=== PATIENT | male | born 1940 ===

== ENCOUNTER 2019-11-05 11:32 | Outpatient (CLI) | payer OTHER ==
[~2019-11-05 11:32] MED LIST: ASA81 MG PO; CEFADROXIL500 MG PO; HYDROCHLOROTHIAZIDE; LISINOPRIL; NOVOLIN N100 UNITS/ IJ; NOVOLIN R100 U/ML IJ; SIMVASTATIN; URIN D.S. TABLE1 TAB PO
== END 2019-11-05 11:37 | disposition home or self-care (01) ==
LOC: RAD 11:32
PROVIDERS: ATTEND Specialist
DX: D16.6 Benign neoplasm of vertebral column (principal)

== ENCOUNTER 2019-11-07 15:39 | Outpatient (CLI) | payer OTHER | END 2019-11-07 15:46 | disposition home or self-care (01) | LOC: SONOGRAMA 15:39 | PROVIDERS: ATTEND Specialist | DX: E11.21 Type 2 diabetes mellitus with diabetic nephropathy (principal); D63.1 Anemia in chronic kidney disease; I13.10 Hypertensive heart and chronic kidney disease without heart failure, with stage 1 through stage 4 chronic kidney disease, or unspecified chronic kidney disease ==

== ENCOUNTER 2019-11-15 14:20 | Outpatient (CLI) | payer OTHER | END 2019-11-15 14:24 | disposition home or self-care (01) | LOC: RAD 14:20 | PROVIDERS: ATTEND Specialist | DX: M16.0 Bilateral primary osteoarthritis of hip (principal) ==

== ENCOUNTER 2022-08-13 14:54 | Outpatient (CLI) | payer OTHER | END 2022-08-13 15:00 | disposition home or self-care (01) | LOC: SONOGRAMA 14:54 | PROVIDERS: ATTEND Specialist | DX: E11.21 Type 2 diabetes mellitus with diabetic nephropathy (principal) ==

== ENCOUNTER 2023-03-24 13:52 | Outpatient (CLI) | payer OTHER | END 2023-03-24 13:53 | disposition home or self-care (01) | LOC: SONOGRAMA 13:52 | PROVIDERS: ATTEND Specialist | DX: G56.00 Carpal tunnel syndrome, unspecified upper limb (principal) ==

== ENCOUNTER 2023-09-23 13:25 | Outpatient (CLI) | payer OTHER | END 2023-09-23 13:26 | disposition home or self-care (01) | LOC: NUCLEAR 13:25 | PROVIDERS: ATTEND Specialist | DX: M81.0 Age-related osteoporosis without current pathological fracture (principal) ==